=== PATIENT | male | born 1960 | race Caucasian/White ===

== ENCOUNTER → 2023-05-20 13:39 | Outpatient (CLI) | payer BC, SELFPAY ==
--- NOTE | ~2023-05-20 | MR_ITS ---
EXAMINATION: MR ankle LT wo con, MR foot LT wo con DATE: 05/21/2023 08:02 INDICATION: Joint pain at the left foot and ankle TECHNIQUE: 1. Magnetic resonance imaging (MRI) of the left ankle was performed without intravenous contrast. Seq uences included sagittal, coronal, and axial proton-density weighted fast spin echo without and with fat saturation. 2. MRI of the left fore/mid foot was performed without intravenous contrast. Sequences included sagi ttal T1-weighted FSE, sagittal fluid sensitive FSE STIR, coronal PD-weighted FS FSE, coronal T1-weigh kallie FSE, axial PD-weighted FS FSE, and axial PD-weighted FSE. COMPARISON: None. FINDINGS: Medial ankle ligaments: There is thickening of the deep and superficial deltoid ligaments with some heterotopic ossification along the deep deltoid ligament without surrounding soft tissue edema consistent with scarring relate d to chronic sprains. The deep deltoid ligament complex is normal. Lateral ankle ligaments: The posterior inferior tibiofibular ligament is normal. There is thickening of the anterior inferior tibiofibular as well as the anterior talofibular, calcaneofibular and posterior talofibular ligaments without surrounding soft tissue edema consistent with additional scarring related to chronic sprains . There is some additional heterotopic ossification along the anterior talofibular ligament and more prominently at the medial side of the posterior talofibular ligament. Mid/forefoot ligaments: The Lis Franc ligament complex is normal. The collateral ligament complexes at the metatarsophalangea l and interphalangeal joints are normal. Tendons: Achilles tendon is normal. Mild fusiform thickening and increased intrasubstance signal consistent wi th mild tendinopathy without tear of the peroneus longus tendon centered at the level of the retromal leolar groove. The peroneus brevis tendon is normal. Full-thickness tear of the distal tibialis anter ior tendon which occurs near its distal insertion. There is severe tendinopathy at both sides of the tear. The proximal tear margin is retracted 6 cm proximally with marked thickening of the tendon exte nding 2.5 similar proximal from the proximal tear margin. The extensor hallucis longus and extensor d igitorum longus tendons are normal. The tibialis posterior, flexor digitorum longus, flexor hallucis longus and peroneus tertius tendons are normal. Plantar fascia: Moderate-sized plantar calcaneal spur with thickening and mild increased signal at the proximal centr al component of the plantar aponeurosis consistent with chronic enthesopathy. No surrounding marrow o r soft tissue edema to suggest acute plantar fasciitis. Bones/other: Bone alignment is normal. No fracture or pathologic marrow replacing process. 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 This of moderate severity at the tibiotalar articulation with regio ns of full and near full-thickness chondral ulceration extending approximately 2 cm AP and 9 mm maxim al medial collateral dimensions along the posterolateral aspect of the talar dome. There is minimal u nderlying cortical irregularity and subarticular edema-like signal change. Additional deep chondral u lceration without degenerative subchondral changes along the lateral margin of the tibial plafond/luan r and small regions of full-thickness chondral ulceration along the anterior and posterior margins of the tibial plafond where there is also minimal cortical irregularity and subarticular edema-like sig nal change. There is moderate osteoarthritis with deep chondral fissuring and underlying subarticular cystlike change at the middle facet of the subtalar joint with mild osteoarthritis in the anterior a nd posterior facets. Mild to moderate osteoarthritis with regions of deep chondral ulceration and sub articular edema-like signal change at both sides of the fourth and fifth tarsal metatarsal joints. M
== END ==
PROVIDERS: PCP Emergency Medicine
DX: M19.072 Primary osteoarthritis, left ankle and foot (principal)
CPT/HCPCS: 73718; 73721